=== PATIENT | female | born 1995 | race Caucasian/White ===

== ENCOUNTER 2019-01-12 16:02 | Inpatient (IN) | payer BC, MEDICAID, OTHER ==
[2019-01-12] MEDS ORDERED: Sodium Chloride 0.9% 10 ML Syringe FLUSH PRN (16:17)
[2019-01-12] MEDS ORDERED: Tranexamic Acid 1,000 MG in Sodium Chloride 0.9% 100 ML IV PRN (16:17)
[2019-01-12] MEDS ORDERED: Citric Acid/Sodium Citrate Solution 30 ML Cup PO ONE ×2 (16:17→16:38)
[2019-01-12] MEDS: Lactated Ringers 1,000 ML IV SCH ×2 (16:28→17:18)
[2019-01-12] MEDS ORDERED: Oxytocin/Normal Saline 30 UNIT/500 ML BAG IV SCH (16:30)
[2019-01-12] MEDS ORDERED: Lactated Ringers 1,000 ML IV SCH (16:30)
[2019-01-12] MEDS ORDERED: ceFAZolin 2 GM in Premix Bag 1 BAG IV ONE (16:38)
[2019-01-12] MEDS ORDERED: Oxytocin/Normal Saline 60 UNIT/1,000 ML BAG ONE (16:55)
[2019-01-12] MEDS ORDERED: Ondansetron 4 MG/2 ML SDV IV PRN (17:10)
[2019-01-12] MEDS ORDERED: Misoprostol 400 MCG (4 X 100 MCG TAB) RECTAL PRN (17:10)
[2019-01-12] MEDS ORDERED: diphenhydrAMINE 50 MG/ML SDV IVPUSH PRN (17:10)
[2019-01-12] MEDS ORDERED: ePHEDrine 50 MG/ML SDV IVPUSH PRN (17:10)
[2019-01-12] MEDS ORDERED: Acetaminophen/oxyCODONE 325-5 MG Tab PO PRN (17:10)
[2019-01-12] MEDS ORDERED: Methylergonovine 0.2 MG/1 ML Amp IM PRN (17:10)
[2019-01-12] MEDS ORDERED: Carboprost Tromethamine 250 MCG/1 ML Amp IM ONE (17:10)
[2019-01-12] MEDS ORDERED: Naloxone 2 MG/2 ML Syringe IVPUSH PRN (17:10)
[2019-01-12] MEDS ORDERED: Ketorolac 30 MG/ML SDV IVPUSH ONE (17:45)
[2019-01-12] MEDS ORDERED: Ketorolac 30 MG/ML SDV IVPUSH SCH (22:00)
[2019-01-12] MEDS: Simethicone 80 MG Tab.Chew PO SCH (23:20)
[2019-01-12] MEDS: ceFAZolin 1 GM in Premix Bag 1 BAG IV SCH (23:21)
[2019-01-13] MEDS: Ketorolac 30 MG/ML SDV IVPUSH SCH ×3 (00:23→12:37)
[2019-01-13] MEDS: Lactated Ringers 1,000 ML IV SCH (03:43)
[2019-01-13] MEDS: ceFAZolin 1 GM in Premix Bag 1 BAG IV SCH ×3 (05:24→20:06)
[2019-01-13] MEDS: Simethicone 80 MG Tab.Chew PO SCH ×4 (10:10→20:06)
[2019-01-13] MEDS: Docusate Sodium 100 MG Cap PO PRN (10:11)
[2019-01-13] MEDS: Prenatal Multivitamin with Calcium/Folic Acid/Iron Tab PO SCH (10:11)
[2019-01-13] MEDS: Acetaminophen 325 MG Tab PO PRN ×2 (10:31→17:03)
[2019-01-13] MEDS: Ibuprofen 800 MG Tab PO PRN (19:50)
[2019-01-13] MEDS ORDERED: ceFAZolin 1 GM in Premix Bag 1 BAG IV SCH (20:15)
[2019-01-14] MEDS: Acetaminophen/oxyCODONE 325-5 MG Tab PO PRN ×5 (01:04→21:01)
[2019-01-14] MEDS: Ibuprofen 800 MG Tab PO PRN ×3 (05:08→23:44)
--- NOTE | 2019-01-14 07:17 | PN ---
DATE: 01/14/2019 SUBJECTIVE: The patient is a 23-year-old female, postoperative day 2 from repeat low-transverse with vacuum assist. The patient is tolerating diet, ambulating, passing gas, urinating well. No bowel movement yet. She is a little bit sore, but the pain medications are helping with that. She has had very minimal bleeding. She did have her Aquacel dressing changed yesterday. Today, Aquacel dressing is clean and dry. OBJECTIVE: Vital Signs: Temperature 98.1, pulse 83, blood pressure 123/67, and respiratory rate 18. Cardiovascular: Regular rate and rhythm. No murmurs noted. Lungs: Clear to auscultation bilaterally. Abdomen: Nondistended and nontender. Bowel sounds present. Incision is covered in Aquacel. Aquacel dressing is clean and dry. Extremities: Very minimal swelling bilaterally. No tenderness. No erythema. ASSESSMENT: Lisa is a 23-year-old female, day 2 from repeat low- transverse . PLAN: Continue cares. Continue working on . Possible discharge tomorrow. The patient was seen by myself and Dr. Desai. Assessment and plan are under the advisement of Dr. Desai. seen and agreed-DCW. [facility] /[id number] MTDD
[2019-01-14] MEDS: Docusate Sodium 100 MG Cap PO PRN ×2 (08:13→21:01)
[2019-01-14] MEDS: Prenatal Multivitamin with Calcium/Folic Acid/Iron Tab PO SCH (08:13)
[2019-01-14] MEDS: Simethicone 80 MG Tab.Chew PO SCH ×4 (08:14→21:01)
--- NOTE | 2019-01-14 08:47 | PN ---
DATE: 01/13/2019 Postop day #1. SUBJECTIVE: The patient is tolerating p.o., Kaiser is in place, passing gas. Pain is under control. OBJECTIVE: Vital Signs: Temperature 99.4, heart rate 92, blood pressure 129/52, respiratory rate 16. Lungs: Clear to auscultation bilaterally. Heart: S1 and S2. Regular rate and rhythm. Pelvic: Firm uterus -2 below umbilicus. Aquacel dressing has some mild shadowing in the mid portion. SCDs and VESNA hose on. Pending is a CBC. ASSESSMENT AND PLAN: Postoperative day #1, status post repeat low transverse section. PLAN: We will continue the Ancef for 4 doses as discussed and follow clinically and closely for any signs and symptoms of infection as well as check a CBC today, and we will change her dressing later today as well. Goals for today were discussed with the patient. She understands and agrees with the above treatment plan. [facility] /[id number]
--- NOTE | 2019-01-14 09:35 | OR ---
DATE: 01/12/2019 PREOPERATIVE DIAGNOSES: 1. Intrauterine at 39 weeks, confirmed on 21 and 6/7th weeks ultrasound. 2. Active labor with contractions and cervical change. 3. Previous x1, requests repeat low transverse section. 4. Group B Streptococcus positive. 5. G2-P1-0-0-1. POSTOPERATIVE DIAGNOSES: 1. Intrauterine at 39 weeks, confirmed on 21 and 6/7th weeks ultrasound - delivered. 2. Active labor with contractions with cervical change. 3. Previous x1, requests repeat low transverse section. 4. Group B Streptococcus positive. 5. G2-P1-0-0-1. 6. Difficulty delivering vertex requiring kiwi-vacuum assistance. PROCEDURE PERFORMED: NST followed by repeat low transverse . ANESTHESIA: Spinal. ESTIMATED BLOOD LOSS: 600 mL. IV FLUIDS: 250 mL of Pitocin, 1500 mL of lactated Ringer's. URINE OUTPUT: 250 mL and clear yellow. START: 1752. UTERINE INCISION: 1756. DELIVERY: 1758. STOP: 181. FINDINGS: Female. score 8 and 9, weight pending. DESCRIPTION OF PROCEDURE IN DETAIL: After proper consent was obtained, the patient was brought to the operating room where spinal anesthetic was administered. Kaiser was placed in preop under sterile conditions. Abdomen was prepped and draped in normal sterile fashion with the patient was placed in supine position with left lateral tilt. Skin incision was made over lower abdomen transverse Pfannenstiel-type fashion over previous scar. This was carried down to the fascia and scored in the midline. Subcutaneous tissue was raked laterally with Hollins retractor, and fascial incision was extended in a transverse fashion using curved Hitchcock's. Melissa clamps x2 were used to grasp the superior aspect of the fascia and rectus muscles were dissected from fascia using sharp and blunt technique. In a similar fashion, Melissa clamps x2 were used to grasp the inferior portion of the incision and rectus pyramidalis muscles were dissected from fascia using sharp and blunt technique. The rectus muscles were in the midline with blunt technique. Abdominal cavity was entered in blunt technique. Incision was extended superiorly and inferiorly with blunt technique. Samuel O large retractor was then introduced and used. Vesicouterine peritoneum was identified and incised in transverse fashion with Metzenbaum scissors, and bladder flap was made digitally. A curvilinear incision was made on the lower uterine segment at 1756 hours. Uterine incision was then extended in transverse fashion using blunt technique. Bulging bag of water was then ruptured bluntly. Subsequently, attempts to bring the vertex through the incision was made with difficulty; therefore, kiwi vacuum was called for, applied to the vertex, pumped up to the green, and with gentle pulling and fundal pressure, pop-off was noted. During this time period, it inadvertently broke sterile field and touched Dr. Laboy's forehead. This instrument was subsequently immediately removed from the sterile field and a sterile surgical towel was placed over where it touched. Subsequently as there was continued difficulty delivering vertex, another new kiwi vacuum was called for, applied to the vertex, pumped up to the green, and with gentle pulling and fundal pressure, vertex was delivered. Rest of the delivered with minimal difficulty. Mouth and nares were suctioned. Cord was doubly clamped cut and infant was brought to team. Then, approximately 10 mL cord blood was obtained for labs. Placenta was then delivered with gentle cord traction and fundal massage. Uterine cavity was then cleared of all blood clots and debris with lap sponge. [place] clamps were used to grasp the uterine incision. This was closed in a running locked fashion and tied at lateral margins with 1-0 Vicryl. First inspection of the uterine incision revealed hemostasis. Samuel O retractor was then removed and paracolic gutters were then cleared of all blood clots and debris. Anterior cul-de-sac was irrigated copiously and all blood clots and debris were removed. Second and final inspection of the uterine incision and anterior cul-de-sac revealed hemostasis. Rectus muscles were then reapproximated in midline with [id number]-[id number] stitch using 1-0 Vicryl. Subfascial tissues were found to be hemostatic, and fascia was closed in a running fashion and tied at lateral margins with 0 looped PDS. Subcutaneous tissue was irrigated copiously. Hemostasis was reassured. Skin was reapproximated with medium angelina. Sterile Aquacel dressing was applied. The uterine fundus was firm and massaged at the conclusion of the case -2 below umbilicus. No immediate complications were noted. Sponge, lap, and needle counts were correct. The patient received 2 g of Ancef preoperatively, Pitocin per protocol, and will receive Toradol at the conclusion of case for pain control. Mother and are currently stable at the time of dictation. Due to break in sterile field, we will treat with antibiotics for the next 24 hours and follow closely with Ancef. Please see orders for further details. This was also discussed with the patient. [facility] /[id number] MTDKev
--- NOTE | 2019-01-14 09:56 | OBOUT ---
DATE: 01/12/2019 DATE AND TIME OF NST: Date: 01/12/2019. Time: 1610 hours to 1630 hours. REASON FOR NST: 1. Intrauterine at 39 weeks, confirmed with 21-6/7-week ultrasound. 2. Active labor with contractions and cervical change. 3. Previous x1. 4. Request repeat low transverse . 5. GBS positive. 6. G2, P 1-0-0-1. NST INTERPRETATION: During this time period, heart tone baseline is approximately 150 and there are least two 15 x 15 beats per minute accelerations, making this strip reactive. It is also noted to be reassuring. Tocometer reveals potential of 8 contractions during this time period felt by the patient. ASSESSMENT/PLAN: 1. Non-stress test, reactive and reassuring. 2. Tocometer with contractions. PLAN: Admit blood pressure 134/88, heart rate 120, temperature 98.3. The patient states she was nervous at that time. She was subsequently evaluated, found to be 2 cm with her contractions on the monitor as above and coming every 1-1/2 to 2 minutes at times, and they are rated anywhere from a 4 to 8 out of 10, getting worse over time. The patient states her contractions started at 8 a.m. this morning. Nothing makes them better. Time has made them worse and they are becoming more and more frequent. She has had a previous x1, requests repeat low transverse section. She GBS positive. Otherwise, please see updated H and P, stickered and placed within the chart under Epic, for further details. We will proceed to the OR as soon as crew is ready and available. [facility] /[id number]
[2019-01-14] MEDS ORDERED: Oxytocin/Normal Saline 30 UNIT/500 ML BAG IV ONE (10:56)
[2019-01-14] MEDS ORDERED: Lidocaine 2% 20 ML MDV ONE (14:54)
[2019-01-14] MEDS ORDERED: ePHEDrine 50 MG/ML SDV IV ONE (14:54)
[2019-01-14] MEDS ORDERED: Ketorolac 30 MG/ML SDV IVPUSH ONE (14:54)
[2019-01-14] MEDS ORDERED: Ondansetron 4 MG/2 ML SDV IV ONE (14:54)
[2019-01-14] MEDS ORDERED: Dexamethasone 4 MG/ML SDV IV ONE (14:54)
[2019-01-14] MEDS ORDERED: Morphine PF 1 MG/ML Amp ONE (14:54)
[2019-01-15] MEDS: Acetaminophen/oxyCODONE 325-5 MG Tab PO PRN ×2 (01:52→09:02)
[2019-01-15 08:41] VITALS: BP 119/79
[2019-01-15] MEDS: Prenatal Multivitamin with Calcium/Folic Acid/Iron Tab PO SCH (09:01)
[2019-01-15] MEDS: Ibuprofen 800 MG Tab PO PRN (09:01)
[2019-01-15] MEDS: Docusate Sodium 100 MG Cap PO PRN (09:01)
[2019-01-15] MEDS: Simethicone 80 MG Tab.Chew PO SCH (09:01)
--- NOTE | 2019-01-15 10:29 | PN ---
DATE: 01/15/2019 SUBJECTIVE: The patient is a 23-year-old female, postoperative day 3 from repeat low-transverse with vacuum assist. The patient is tolerating diet, ambulating, passing gas and urinating well. No bowel movement yet. She has some cramping with , but that is it. She has had very minimal bleeding. She feels her milk supply has come in more, so she is excited about that. The patient is denying any fevers, chills, headaches, visual changes, chest pain, or shortness of breath. OBJECTIVE: Vital Signs: Temperature 98.2, pulse 82, blood pressure 132/79, respiratory rate 16. Cardiovascular: Regular rate and rhythm. No murmurs noted. Lungs: Clear to auscultation bilaterally. Abdomen: Nondistended, nontender. Bowel sounds present. Incision is covered in Aquacel. Aquacel dressing is clean and dry. Extremities: No swelling, no tenderness, no erythema. ASSESSMENT: Lisa is a 23-year-old female, day 3 from repeat low- transverse , doing well. PLAN: Continue cares. Continue . We will discuss discharge today. The patient was seen by myself and Dr. Desai. Assessment and plan are under advisement of Dr. Desai. seen and agreed-[facility] /[id number] MTDKev
--- NOTE | 2019-01-15 14:05 | DISCH ---
ADMITTING DIAGNOSES: 1. Intrauterine at 39 weeks, confirmed on weeks' ultrasound. 2. Active labor upon admission with contractions and cervical change. 3. Previous x1, requests repeat low-transverse section. 4. Group B Streptococcus positive. 5. G2, P1-0-0-1. DISCHARGE DIAGNOSES: 1. Intrauterine at 39 weeks, confirmed on 21 weeks' ultrasound - delivered. 2. Active labor upon admission with contractions and cervical change. 3. Previous x1, requests repeat low-transverse section. 4. Group B Streptococcus positive. 5. G2, P1-0-0-1. 6. Delivery assisted with Kiwi vacuum due to difficulty delivering vertex. PROCEDURES PERFORMED: NST followed by repeat low-transverse section per Dr. Desai. HISTORY OF PRESENT ILLNESS: Please see H and P. SUMMARY OF HOSPITAL COURSE: The patient was admitted on the above date with the above diagnoses, found to be in active labor with contractions and cervical change. Underwent repeat low-transverse yielding a female with scores of 8 and 9, weighing 8 pounds 8 ounces (3865 g). Please see operative report for further details. Postoperative day 1, 2, and 3 as well as discharge evaluation, please see notes done in conjunction and seen and agreed with Samuel Mckee MS-III. CONDITION ON DISCHARGE COMPARED TO CONDITION ON ADMISSION: Improved. DISCHARGE INSTRUCTIONS: 1. Diet: As tolerated. 2. Activity: No lifting more than 20 pounds. No sit-ups, straining, and pelvic rest for the next 6 weeks with immediate return to fertility discussed with the patient. 3. Reasons to return or go to the emergency room were discussed with the patient in detail including, but not limited to, temperature greater than 100.4, foul-smelling discharge, red hot tender breasts, or increased vaginal bleeding. DISCHARGE MEDICATIONS: 1. Kjhg-pgx-ndgpves Tylenol or ibuprofen for pain. 2. vitamins x6 weeks. 3. Percocet 5/325 one to two q.6 hours p.r.n., #30, no refills. Discussed the use of this medication, adverse and unwanted effects, as well as precautions with driving. FOLLOWUP: Follow up , 01/17/2019, for staple removal as well as with her baby. I did discuss the importance of followup and ramifications of not doing so as well as reasons to return or go to the emergency room in regard to her baby. [facility] /[id number]
== END 2019-01-15 10:45 | disposition home or self-care (01) | DRG 788 ==
LOC: UNDOADMOB 16:02 → DL.OB 16:02 → DL.MS 16:02 → OBSVTOIN 17:58
PROVIDERS: ADMIT Family Medicine; ATTEND Family Medicine
PROC: 10D00Z1 Extraction of Products of Conception, Low, Open Approach (ICD-10-PCS; principal; 2019-01-12)
PROC: 4A1HXCZ Monitoring of Products of Conception, Cardiac Rate, External Approach (ICD-10-PCS; 2019-01-12)
DX: O34.211 Maternal care for low transverse scar from previous cesarean delivery (principal); Z3A.39 39 weeks gestation of pregnancy; Z37.0 Single live birth; O99.824 Streptococcus B carrier state complicating childbirth
CPT/HCPCS: 36415; 85025; 85027; 86850; 86900; 86901; 94010; A9270-GY; J0690; J1100; J1885; J2001; J2274; J2405; J2590; J7120

== ENCOUNTER 2021-02-08 02:18 | Inpatient (IN) | payer OTHER ==
[2021-02-08] MEDS: Lactated Ringers 1,000 ML IV SCH ×3 (03:10→08:43)
[2021-02-08] MEDS ORDERED: Sodium Chloride 0.9% 10 ML Syringe FLUSH PRN (03:22)
[2021-02-08] MEDS ORDERED: Citric Acid/Sodium Citrate Solution 30 ML Cup PO ONE (03:22)
[2021-02-08] MEDS ORDERED: ceFAZolin 2 GM in Premix Bag 1 BAG IV ONE (03:22)
[2021-02-08] MEDS ORDERED: Tranexamic Acid 1,000 MG in Sodium Chloride 0.9% 100 ML IV PRN ×2 (03:22→05:20)
[2021-02-08] MEDS ORDERED: Lactated Ringers 1,000 ML IV SCH ×2 (03:30→05:30)
[2021-02-08] MEDS ORDERED: Oxytocin/Normal Saline 30 UNIT/500 ML BAG IV SCH (03:30)
[2021-02-08] MEDS ORDERED: Oxytocin/Normal Saline 60 UNIT/1,000 ML BAG ONE (03:34)
--- NOTE | 2021-02-08 03:35 | PCM.LDHP ---
L&D History of Present Illness - General Date of Service: 02/08/21 Admit Problem/Dx: Patient Status Order with Admit Dx/Problem 02/08/21 03:22 Patient Status [ADT] Routine Admission Diagnosis/Problem Admission Diagnosis/Problem Spontaneous rupture of membranes Source of Information: Patient - History of Present Illness Introduction:: Patient is a at 39w0d who presents to L and D due to leakage of fluids. She felt a gush of clear fluid around 1:30 AM this morning. She's continued to leak since then. She has been experiencing some contractions as well. Contractions are increasing in intensity. She was scheduled to do a repeat in [place] due to her current social situation. She was from her at the time of conception and she is not sure if her or another man is the father of the baby. Her sister will be helping care for the baby until she can figure out what to do, paternity testing, etc. She's had an uncomplicated so far. GBS was positive. She has a history of 2 prior c-sections. She is currently on Zoloft for depression which was noted during the . She did have COVID 19 during her as well. Her baby has been active. Denies vaginal bleeding. - Related Data Allergies/Adverse Reactions: Allergies Allergy/AdvReac Type Severity Reaction Status Date / Time No Known Allergies Allergy Verified 01/12/19 20:41 Home Medications: Home Meds Pnv No.95/Ferrous Fum/Folic AC [ Tablet] 1 tab PO DAILY 09/07/14 [History] Acetaminophen [Tylenol] 650 mg PO Q4H 01/12/19 [History] Past Medical History HEENT History: Reports: Impaired Vision Cardiovascular History: Reports: None Respiratory History: Reports: None Gastrointestinal History: Reports: None Genitourinary History: Reports: None SNELLER HAND History: Reports: , Other (See Below) : 3 Para: 2 Other OB/BYN History: hx of two sections Musculoskeletal History: Reports: None Neurological History: Reports: None Psychiatric History: Reports: Depression Endocrine/Metabolic History: Reports: None Hematologic History: Reports: None Immunologic History: Reports: None Oncologic (Cancer) History: Reports: None Dermatologic History: Reports: None - Infectious Disease History Infectious Disease History: Reports: Other (See Below) Other Infectious Disease History: covid 06/20/20 - Past Surgical History Head Surgeries/Procedures: Reports: None Social & Family History - Family History Family Medical History: No Pertinent Family History Cardiac: Reports: Hypertension Other Cardiac Family History: High cholesterol Oncologic: Reports: Ovarian - Tobacco Use Tobacco Use Status *Q: Never Tobacco User - Caffeine Use Caffeine Use: Reports: Soda - Living Situation & Occupation Living situation: Reports: Occupation: Employed Social History Comment: Currently from and were in the midst of a divorce. Everything was put on hold when she got . Patient's sister will be caring for until she decides what to do. Adoption may be a possibility. Paternity testing is likely. H&P Review of Systems - Review of Systems: Review Of Systems: See Below General: Denies: Fever, Chills HEENT: Denies: Headaches, Rhinitis, Sinus Congestion, Sore Throat, Visual Changes Pulmonary: Denies: Shortness of Breath, Cough, Sputum Cardiovascular: Denies: Chest Pain, Palpitations, Edema, Lightheadedness, Blood Pressure Problem Gastrointestinal: Reports: Constipation. Denies: Abdominal Pain, Diarrhea, Nausea, Vomiting Neurological: Denies: Dizziness, Headache, Weakness L&D Exam - Exam Exam: See Below - Vital Signs Vital Signs: Vital Signs (72 hours) 02/08/21 02:26 Temperature [ 98.5 F Temporal] Pulse, 108 H Peripheral [ Pulse Oximetry] Respiratory 20 Rate Blood Pressure 120/91 H [Left Upper Arm ] - Exam General: Alert, Oriented HEENT: Conjunctiva Clear, Mucosa Moist & [place], Pupils Equal, Pupils Reactive Neck: Supple, Trachea Midline Lungs: Clear to Auscultation, Normal Respiratory Effort Cardiovascular: Regular Rate, Regular Rhythm GI/Abdominal Exam: Soft, Non-Tender, No Distention Extremities: Normal Inspection, Non-Tender, No Pedal Edema Skin: Warm, Dry Neurological: Reflexes Equal Bilateral - Patient Data Lab Results Last 24 hrs: Laboratory Results - last 24 hr 02/08/21 Range/Units 02:40 Membrane Rupture Positive (NEG) - Problem List (1) Term SNOMED Code(s): 47495565 ICD Code: Z34.90 - ENCNTR FOR SUPRVSN OF NORMAL , UNSP, UNSP TRIMESTER Status: Acute Current Visit: Yes (2) Hx of section SNOMED Code(s): 708180880 ICD Code: Z98.891 - HISTORY OF UTERINE SCAR FROM PREVIOUS SURGERY Status: Acute Current Visit: Yes (3) Positive GBS test SNOMED Code(s): 743176379, 507817268 ICD Code: B95.1 - STREPTOCOCCUS, GROUP B, CAUSING DISEASES CLASSD ELSWHR Status: Acute Current Visit: Yes (4) History of COVID-19 SNOMED Code(s): 545551100904992544, 650050977095821556 ICD Code: Z86.16 - PERSONAL HISTORY OF COVID-19 Status: Acute Current Visit: Yes (5) Depression affecting SNOMED Code(s): 85995038624182 ICD Code: O99.340 - OTH MENTAL DISORDERS COMPLICATING , UNSP TRIMESTER; F32.9 - MAJOR DEPRESSIVE DISORDER, SINGLE EPISODE, UNSPECIFIED Status: Acute Current Visit: Yes Problem List Initiated/Reviewed/Updated: Yes Orders Last 24hrs: Active Orders 24 hr Category Date Time Status Patient Status [ADT] Routine ADT 02/08/21 03:22 Ordered Non Stress Test [RC] PER UNIT ROUTINE Care 02/08/21 03:22 Ordered Notify Provider Vital Signs OB [RC] ASDIRECTED Care 02/08/21 03:22 Ordered OB Check [OM.PC] Click to Edit Care 02/08/21 02:25 Ordered Peripheral IV Care [RC] . DIRECTED Care 02/08/21 03:23 Ordered Procedure Site Prep Instruct [RC] ASDIRECTED Care 02/08/21 03:22 Ordered RT Incentive Spirometry [RC] ASDIRECTED Care 02/08/21 03:22 Ordered Vital Signs [RC] PER UNIT ROUTINE Care 02/08/21 03:22 Ordered Nothing Per Oral Diet [DIET] Diet 02/08/21 Breakfast Ordered Nothing Per Oral Diet [DIET] Diet 02/08/21 Dinner Ordered Nothing Per Oral Diet [DIET] Diet 02/08/21 Lunch Ordered CBC WITH AUTO DIFF [HEME] Routine Lab 02/08/21 03:22 Ordered CORONAVIRUS COVID-19 FRANCIE [MOLEC] Stat Lab 02/08/21 03:20 Ordered TYPE AND SCREEN [BBK] Routine Lab 02/08/21 03:22 Ordered Citric Acid/Sodium Citrate [Bicitra Solution] Med 02/08/21 03:22 Once 30 ml PO ONETIME ONE Lactated Ringers @ 125 MLS/HR(1000ml) Med 02/08/21 03:30 Ordered Lactated Ringers [Ringers, Lactated] 1,000 ml IV ASDIRECTED Lactated Ringers [Ringers, Lactated] 1,000 ml Med 02/08/21 03:30 Ordered IV .BOLUS Oxytocin 30 Units in NS @ 2 MUNITS/MIN(500ml) Med 02/08/21 03:30 Ordered Oxytocin/Normal Saline [Pitocin in NS 30 UNIT/500 ML] 30 unit in 500 ml IV TITRATE Sodium Chloride 0.9% [Saline Flush] Med 02/08/21 03:22 Ordered 10 ml FLUSH ASDIRECTED PRN Tranexamic Acid [Cyklokapron] 1,000 mg Med 02/08/21 03:22 Ordered Sodium Chloride 0.9% [Normal Saline] 100 ml IV ONETIME ceFAZolin [Ancef 2 GM/50 ML] 2 gm Med 02/08/21 03:22 Ordered Premix Bag 1 bag IV ONETIME EFM External [ Heart Monitor External] [WOMSER] Ot 02/08/21 02:30 Ordered Per Unit Routine Peripheral IV Insertion Adult [OM.PC] Routine Ot 02/08/21 03:22 Ordered Schedule Procedure [COMM] Per Unit Routine Ot 02/08/21 03:22 Ordered Resuscitation Status Routine Resus Stat 02/08/21 03:22 Ordered Medication Orders Citric Acid/Sodium Citrate (Citric Acid/Sodium Citrate Solution 30 Ml Cup) 30 ml PO ONETIME ONE Stop: 02/08/21 03:23 Lactated Ringer's (Ringers, Lactated) 1,000 mls @ 125 mls/hr IV ASDIRECTED TARSHA Lactated Ringer's (Ringers, Lactated) 1,000 mls @ 500 mls/hr IV .BOLUS TARSHA Assessment/Plan Comment:: Amnisure positive. Patient starting to feel contractions. Will admit to L and D Proceed with . Dr. Huerta notified and will be performing . Last meal around 10:30 PM. Requests discharge from hospital as soon as possible after delivery. Ashli Parekh MD
[2021-02-08] MEDS ORDERED: Ondansetron 4 MG/2 ML SDV IV ONE (04:30)
[2021-02-08] MEDS ORDERED: ePHEDrine 50 MG/ML SDV IV ONE (04:30)
[2021-02-08] MEDS ORDERED: Lactated Ringers 1,000 ML IV ONE (04:30)
[2021-02-08] MEDS ORDERED: Dexamethasone 4 MG/ML SDV IV ONE (04:30)
[2021-02-08] MEDS ORDERED: Oxytocin/Normal Saline 30 UNIT/500 ML BAG IV ONE (04:30)
[2021-02-08] MEDS ORDERED: Morphine PF 1 MG/ML Amp ITHECAL ONE (04:30)
[2021-02-08] MEDS ORDERED: Ketorolac 30 MG/ML SDV IVPUSH ONE (04:30)
--- NOTE | 2021-02-08 05:19 | PCM.PRNOTE ---
- Free Text/Narrative Note: Section Operative Report Date of Surgery: 02/08/2021 Surgeon: Nesha Huerta MD Lumber Scaler: Ashli Parekh MD Pre-Operative Diagnosis: at 39w2d with SROM History of section x2 Declines Post-Operative Diagnosis: Same Procedure Performed: Repeat low transverse section Anesthesia: Spinal EBL: 300 mL IVF: 2200 mL Drains: Kaiser catheter with 200 mL of urine output Specimens: None Complications: None apparent Findings: Normal uterus, tubes, and ovaries. Indication and Consent: The patient presented to floor today with suspected SROM, confirmed by Amniosure. Patient has declined delivery and would like to proceed with delivery. The patient understood that the risks of section include, but are not limited to, visceral or vascular injury, infection, blood loss and need for blood transfusion, prolonged hospitalization, and reoperation. The patient again stated understanding and desired to proceed. All questions were answered. Procedure in Detail: The patient was taken to the operating room where spinal anesthesia was placed and found to be adequate. 2 grams of cefazolin (Ancef) were given for infection prophylaxis. She was then prepped and draped in routine fashion in dorsal supine position with a left collier tilt. Kaiser catheter and pneumoboots were placed. A Pfannenstiel skin incision was made with a scalpel. The incision was carried down to the fascia sharply. The fascia was incised and extended laterally. The superior aspect of the fascia was grasped with Melissa clamps; the underlying rec tus muscle and pyramidalis was dissected off with sharp and blunt technique. In a similar fashion, the inferior aspect of the fascia was elevated with Melissa clamps and the rectus muscle was dissected off. Hemostasis was achieved with the Bovie. The rectus musculature was in the midline down to the level of the pubic symphysis. Pre-peritoneal fatty tissue was bluntly dissected to expose the peritoneum. The peritoneum was found to be free of adherent bowel or bladder tissue and entered bluntly. The peritoneal opening was then extended superiorly and inferiorly to the bladder reflection with good visualization of the bladder. The Samuel retractor was inserted. Intraabdominal survey revealed scant, clear peritoneal fluid and thinned-out lower uterine segment. The vesicouterine peritoneum was opened with a pickup and mets, and the bladder flap was developed. The lower uterine segment was incised with a scalpel. The amniotic sac was noted to be rupture and a small amount of clear fluid was noted. The uterine incision was extended bluntly with lateral and upward traction. The fetus was in cephalic position. The head was elevated out of the maternal pelvis with special attention paid to avoid using the uterine incision as a fulcrum. Gentle fundal pressure was applied once the head was brought into the incision. A vacuum was applied to the head to aid in delivery. The infant was delivered with minimal difficulty. Bulb suctioning of the 's nose and mouth was performed on the operative field. Cord blood was collected.The cord was clamped and cut in standard fashion, and the was handed over to the awaiting nursery staff. IV oxytocin was initiated to facilitate uterine contractions. The placenta was delivered intact with manual message of the uterine fundus along with gentle cord traction. The inside of the uterus was gently wiped with a lap sponge to assure complete removal of remaining products of conception. The uterine incision was closed with 0 -Vicryl suture in a running locked fashion. A second imbricating layer of 0-Monocryl was also placed. The incision was inspected and hemostasis was achieved. The ovaries and tubes were visualized and found to be normal. The uterus, tubes, and ovaries were returned to the abdominal cavity. The blood clots and fluid were wiped out of the abdomen and pelvis with moist laparotomy sponges. The uterine incision was re-inspected along with all other incised surfaces. A small amount of bleeding on the left corner of the incision was noted. This was repaired with a single figure-of-8 suture and good hemostasis was confirmed. The Samuel retractor was removed. 2-0 Vicryl was used to reapproximate the peritoneum. The fascia was then closed with 2-0 looped PDS suture with care not to include any underlying abdominal contents. The skin was closed with 4-0 Monocryl suture on a Elver needle in a subcuticular fashion. Sponge and instrument counts were reported as correct times two. Patient tolerated procedure well and was taken to PACU in stable condition. Nesha Huerta MD
[2021-02-08] MEDS ORDERED: Carboprost Tromethamine 250 MCG/1 ML Amp IM PRN (05:20)
[2021-02-08] MEDS ORDERED: diphenhydrAMINE 50 MG/ML SDV IVPUSH PRN (05:20)
[2021-02-08] MEDS ORDERED: Methylergonovine 0.2 MG/1 ML Amp IM PRN (05:20)
[2021-02-08] MEDS ORDERED: Misoprostol 400 MCG (4 X 100 MCG TAB) RECTAL PRN (05:20)
[2021-02-08] MEDS ORDERED: Ondansetron 4 MG/2 ML SDV IVPUSH PRN (05:20)
[2021-02-08] MEDS ORDERED: Acetaminophen 325 MG Tab PO PRN (05:20)
[2021-02-08] MEDS ORDERED: ePHEDrine 50 MG/ML SDV IVPUSH PRN (05:20)
[2021-02-08] MEDS ORDERED: Acetaminophen/oxyCODONE 325-5 MG Tab PO PRN (05:20)
[2021-02-08] MEDS ORDERED: Naloxone 2 MG/2 ML Syringe IVPUSH PRN (05:20)
[2021-02-08] MEDS ORDERED: Ketorolac 30 MG/ML SDV IVPUSH SCH (05:30)
[2021-02-08] MEDS: Prenatal Multivitamin with Calcium/Folic Acid/Iron Tab PO SCH (08:43)
[2021-02-08] MEDS: Docusate Sodium 100 MG Cap PO PRN ×2 (08:43→22:35)
[2021-02-08] MEDS: Ferrous Sulfate 325 MG Tab PO SCH (08:43)
[2021-02-08] MEDS: Simethicone 80 MG Tab.Chew PO SCH ×5 (08:43→22:35)
[2021-02-08] MEDS: Ketorolac 30 MG/ML SDV IVPUSH SCH ×3 (11:38→22:34)
[2021-02-08] MEDS: Sertraline 50 MG Tab PO SCH (11:39)
[2021-02-08] MEDS ORDERED: Zolpidem 5 MG Tab PO ONE (22:00)
[2021-02-09] MEDS ORDERED: Ibuprofen 800 MG Tab PO PRN (01:30)
[2021-02-09] MEDS: Acetaminophen/oxyCODONE 325-5 MG Tab PO PRN ×2 (06:07→10:23)
[2021-02-09 08:18] VITALS: BP 123/73; PULSE 82
[2021-02-09] MEDS: Simethicone 80 MG Tab.Chew PO SCH (08:42)
[2021-02-09] MEDS: Ferrous Sulfate 325 MG Tab PO SCH (08:42)
[2021-02-09] MEDS: Sertraline 50 MG Tab PO SCH (08:42)
[2021-02-09] MEDS: Prenatal Multivitamin with Calcium/Folic Acid/Iron Tab PO SCH (08:42)
[2021-02-09] MEDS: Docusate Sodium 100 MG Cap PO PRN (10:22)
--- NOTE | 2021-02-09 14:00 | DISCH ---
ADMITTING DIAGNOSES: 1. Intrauterine at 39 weeks, confirmed with 15 and 4/7 weeks ultrasound. 2. Spontaneous rupture of membranes. 3. History of 2 previous C-sections, requests repeat low transverse . 4. History of coronavirus disease. 5. GBS positive. 6. Depression in , on Zoloft. DISCHARGE DIAGNOSES: 1. Intrauterine at 39 weeks, confirmed with 15 and 4/7 weeks ultrasound - delivered. 2. Spontaneous rupture of membranes. 3. History of 2 previous C-sections, requests repeat low transverse . 4. History of coronavirus disease. 5. GBS positive. 6. Depression in , on Zoloft. 7. Now G3, P3-0-0-3. PROCEDURES PERFORMED: Repeat low transverse per Dr. Huerta. HISTORY OF PRESENT ILLNESS: Please see H and P. SUMMARY OF HOSPITAL COURSE: The patient was admitted on the above date with above diagnosis. Because of 2 previous C-sections, spontaneous rupture of membranes that was confirmed with AmniSure, she underwent a repeat low transverse with Dr. Huerta under a spinal anesthetic. Please see op report for further details. This yielded a female, score 8 and 9, weighing 7 pounds 3 ounces (3265 g). Postop day #1, date of discharge, the patient was tolerating p.o., was ambulating, urinating, passing flatus, requesting discharge. She has some social issues with her baby and was planning for adoption and working through this. Her sister has been helping as well and supportive. PHYSICAL EXAMINATION: Vital Signs: Temperature 97.7, heart rate 66, blood pressure 119/67, respiratory rate 16. Lungs: Clear to auscultation bilaterally. Heart: S1, S2. Regular rate and rhythm. Abdomen: Firm uterus. -2 below the umbilicus, fundal region. Pfannenstiel incision was evaluated, Steri-Strips applied. No drainage, excessive pain or redness noted. Extremities: Trace pedal edema. No calf pain. LABORATORY DATA: White cell count 15.4, compared to predelivery white cell count 13.9; predelivery hemoglobin 11.7, date of discharge, hemoglobin 10.5. CONDITION ON DISCHARGE COMPARED TO CONDITION ON ADMISSION: Improved. DISCHARGE INSTRUCTIONS: 1. Diet as tolerated. 2. Activity: No lifting more than 20 pounds. No sit-ups or straining, and pelvic rest for the next 6 weeks with immediate return to fertility discussed with the patient. 3. Reason to return or go to the emergency room discussed with the patient in detail including but not limited to temperature greater than 100.4, foul- smelling discharge, red or tender breasts, or increased vaginal bleeding or drainage, redness surrounding the incision. DISCHARGE MEDICATIONS: [id number] ibuprofen for pain; vitamins x6 weeks; and Percocet 5/325 1 to 2 q.6 hours p.r.n., #15, no refills, discussed the use of this medication, adverse and unwanted effects, as well as precautions with driving. FOLLOWUP: 2 weeks . PLAN: The patient was requesting discharge as soon as possible after delivery with her social issues and was doing well on date of discharge and did discuss with her in detail reasons to go to emergency room as above, as well as please see discharge paperwork for further details, and if she has other concerns, she is to notify. [facility] /[id number]
== END 2021-02-09 12:20 | disposition home or self-care (01) | DRG 788 ==
LOC: DL.OBCHECK 02:18 → OBSVTOIN 02:59 → DL.OB 02:59
PROVIDERS: ADMIT Family Medicine; ATTEND Family Medicine
PROC: 10D00Z1 Extraction of Products of Conception, Low, Open Approach (ICD-10-PCS; principal; 2021-02-08)
DX: O34.211 Maternal care for low transverse scar from previous cesarean delivery (principal); Z3A.39 39 weeks gestation of pregnancy; Z37.0 Single live birth; Z20.822 Contact with and (suspected) exposure to COVID-19; O99.824 Streptococcus B carrier state complicating childbirth; O99.344 Other mental disorders complicating childbirth; F32.9 Major depressive disorder, single episode, unspecified; Z86.16 Personal history of COVID-19
CPT/HCPCS: 01961; 36415; 59025; 84112; 85025; 85027; 86850; 86900; 86901; A9270-GY; J0690; J1100; J1200; J1885; J2274; J2405; J2590; J7120; U0002